=== PATIENT | male | born 1975 | race Caucasian/White ===

== ENCOUNTER 2024-01-19 16:24 | Emergency (ER) | payer BC, SELFPAY ==
[2024-01-19 16:30] VITALS: BP 134/78; PULSE 84; RESP 14; TEMP 36.9; O2SAT 98
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
[2024-01-19] MEDS: iohexol 350 mg/mL 500 mL Btl (per mL) IV (16:51)
[2024-01-19 17:26] VITALS: BP 157/82; PULSE 84; RESP 16; O2SAT 97
== END 2024-01-19 17:26 | disposition home or self-care (01) ==
PROVIDERS: Emergency Provider Emergency Medicine
DX: S31.133A Puncture wound of abdominal wall without foreign body, right lower quadrant without penetration into peritoneal cavity, initial encounter (principal); W20.8XXA Other cause of strike by thrown, projected or falling object, initial encounter; Y93.H2 Activity, gardening and landscaping
CPT/HCPCS: 74177; 99285; Q9967